=== PATIENT | female | born 2000 | race Two or more races ===

== ENCOUNTER 2025-05-04 06:27 | Inpatient (IN) ==
[2025-05-04] MEDS ORDERED: NUBAIN INJ 20 MG AMP IVP PRN (06:34)
[2025-05-04] MEDS ORDERED: ZOFRAN INJ 4 MG VIAL IVP PRN (06:34)
[2025-05-04] MEDS ORDERED: REGLAN INJ 10 MG VIAL IVP PRN (06:34)
[2025-05-04] MEDS: D5 1/2 NS 1,000 ML 1,000 ML IV ONE (06:54)
[2025-05-04] MEDS: OXYTOCIN 20 UNIT/1,000 ML-NS 20 UNIT/1,000 ML PLAST..BAG IV PRN (06:55)
[2025-05-04] MEDS ORDERED: LR 1,000 ML IV 1,000 ML IV SCH (07:00)
[2025-05-04 07:42] LABS: MEAN PLATELET VOLUME 9.5 fL (7.4-11.0); RED CELL DISTRIBUTION WIDTH 15.8 % (11.6-16.5)
[2025-05-04 07:50] LABS: CREATININE 0.43 mg/dL (0.55-1.02); eGFR NON BLACK RACES > 60 (>60)
[2025-05-04] MEDS: NUBAIN INJ 10 MG AMP ONE ×3 (08:10→12:09)
[2025-05-04 08:33] LABS: PLATELET MORPHOLOGY COMMENT NORMAL (NORMAL)
[2025-05-04] MEDS: BETADINE SOLN ONE ×2 (12:38→14:37)
[2025-05-04] MEDS: PITOCIN IVP ONE (13:04)
[2025-05-04] MEDS ORDERED: MILK OF MAGNESIA PO PRN (13:45)
[2025-05-04] MEDS ORDERED: MOTRIN TAB 800 MG PO ONE (13:48)
[2025-05-04] MEDS: MOTRIN TAB 800 MG PO PRN (13:55)
[2025-05-04] MEDS: OXYTOCIN 20 UNIT/1,000 ML-NS 20 UNIT/1,000 ML PLAST..BAG IV SCH (13:59)
[2025-05-04] MEDS: DERMOPLAST PAIN RELIEF SPRAY TOP PRN (14:37)
[2025-05-04] MEDS: PITOCIN ONE (16:18)
[2025-05-04] MEDS: XYLOCAINE 1 % (PLAIN) ONE (16:18)
[2025-05-05] MEDS: BETADINE SOLN ONE (02:10)
[2025-05-05] MEDS: PRENATAL PLUS PO SCH (08:40)
[2025-05-05] MEDS: NS 100 ML IV 100 ML with VENOFER 400 MG IV ONE (09:47)
[2025-05-05 12:28] VITALS: BP 99/54; PULSE 75; RESP 18; TEMP 98; O2SAT 99
== END 2025-05-05 14:50 | disposition home or self-care (01) | DRG 807 ==
LOC: LD 06:27 → MED/SURG 14:24
PROVIDERS: ADMIT Obstetrics & Gynecology Obstetrics; ATTEND Obstetrics & Gynecology Obstetrics
DX: O70.1 Second degree perineal laceration during delivery; Z3A.40 40 weeks gestation of pregnancy; O26.893 Other specified pregnancy related conditions, third trimester; Z37.0 Single live birth; Z55.8 Other problems related to education and literacy